=== PATIENT | male | born 1990 | race Caucasian/White ===

== ENCOUNTER 2018-10-12 13:56 | Emergency (ER) | payer MEDICAID ==
[2018-10-12 15:25] LABS: BASO % 0.5 % (0.0-2.0); EOS # 0.1 K/uL (0.0-0.7); EOS % 1.4 % (0.0-4.0); HEMOGLOBIN 12.7 g/dL (12.0-18.0); LYMPH # 1.5 K/uL (1.0-4.3); LYMPH % 18.1 % (20.0-40.0); MEAN CELL VOLUME 89.7 fL (80.0-94.0); MEAN CORPUSCULAR HEMOGLOBIN 29.8 pg (27.0-31.0); MEAN CORPUSCULAR HGB CONC 33.3 g/dL (33.0-37.0); MEAN PLATELET VOLUME 8.7 fL (7.2-11.7); MONO # 0.5 K/uL (0.0-0.8); MONO % 6.1 % (0.0-10.0); NEUT # 6.3 K/uL (1.8-7.0); NEUT % 73.9 % (50.0-75.0); RBC 4.27 Mil/uL (4.40-5.90); RED CELL DISTRIBUTION WIDTH 12.9 % (11.5-14.5); WHITE BLOOD COUNT 8.5 K/uL (4.8-10.8)
--- NOTE | 2018-10-12 15:26 | C.PDOC ---
History Of Present Illness 28 y/o male,w/PMhx of seizure disorder, presents to the ER complaining of episode of dizziness which occurred earlier today. 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 Patient reports he began to feel dizzy and nauseous. He felt clammy and he had some palpitations. He told his boss that he was concerned he may have seizure, however he did not have a seizure. He is currently on Keppra. However, his dosage is being currently decreased so he can switch to another medication. He has been experiencing brief seizure x 1 per day for the past 3 days. Denies having headache,visual disturbances, CP,and SOB. Time Seen by Provider: 10/12/18 15:01 Chief Complaint (Nursing): Seizure History Per: Patient History/Exam Limitations: no limitations Severity: Moderate Past Medical History Reviewed: Historical Data, Nursing Documentation, Vital Signs Vital Signs: Last Vital Signs Temp 97.5 F L 10/12/18 14:01 Pulse 64 10/12/18 14:01 Resp 20 10/12/18 14:01 BP 130/77 10/12/18 14:01 Pulse Ox 96 10/12/18 14:01 Primary Care Provider: Taurus Olivier - Medical History PMH: Seizures Surgical History: No Surg Hx Family History: States: No Known Family Hx - Social History Hx Alcohol Use: No Hx Substance Use: Yes - Immunization History Hx Tetanus Toxoid Vaccination: No Hx Influenza Vaccination: No Review Of Systems Constitutional: Negative for: Fever, Chills Eyes: Negative for: Vision Change Gastrointestinal: Positive for: Nausea. Negative for: Vomiting, Abdominal Pain Neurological: Positive for: Dizziness. Negative for: Headache Physical Exam - Physical Exam Appears: Non-toxic, No Acute Distress Skin: Normal Color, Warm, Dry Head: Atraumatic, Normacephalic Eye(s): bilateral: Normal Inspection, PERRL, EOMI Nose: Normal Oral Mucosa: Moist Neck: Supple Chest: Symmetrical Cardiovascular: Rhythm Regular Respiratory: Normal Breath Sounds, No Rales, No Rhonchi, No Wheezing Gastrointestinal/Abdominal: Normal Exam, Soft, No Tenderness, No Guarding, No Rebound Neurological/Psych: Oriented x3, Normal Speech ED Course And Treatment - Laboratory Results Result Diagrams: 10/12/18 15:19 05/01/19 15:19 Lab Interpretation: Normal O2 Sat by Pulse Oximetry: 96 (RA) Pulse Ox Interpretation: Normal Reevaluation Time: 15:59 Reassessment Condition: Improved (Patient feels well and back to normal.) Medical Decision Making Medical Decision Making: Plan: --Labs --UA --ECG --Glucose,POC Disposition Counseled Patient/Family Regarding: Studies Performed, Diagnosis, Need For Followup - Disposition Referrals: Josue Case MD [Staff Provider] - Disposition: HOME/ ROUTINE Disposition Time: 16:00 Condition: IMPROVED Instructions: Seizures Forms: Journal[employer] (Japanese) - Clinical Impression Clinical Impression: Seizure disorder - Scribe Statement The provider has reviewed the documentation as recorded by the Scribe cliff Pradhan Provider Attestation: All medical record entries made by the Scribe were at my direction and personally dictated by me. I have reviewed the chart and agree that the record accurately reflects my personal performance of the history, physical exam, medical decision making, and the department course for this patient. I have also personally directed, reviewed, and agree with the discharge instructions and disposition.
[2018-10-12 15:40] LABS: ALB/GLOB RATIO 1.8 (1.0-2.1); ALBUMIN 4.7 g/dL (3.5-5.0); ALT/SGPT 44 U/L (21-72); AST/SGOT 33 U/L (17-59); BLOOD UREA NITROGEN 25 mg/dL (9-20); CALCIUM 9.9 mg/dl (8.6-10.4); GFR NON-AFRICAN AMERICAN > 60
[2018-10-12 15:50] LABS: URINE BILIRUBIN NEGATIVE (NEGATIVE); URINE BLOOD NEGATIVE (NEGATIVE); URINE CLARITY Clear (Clear); URINE COLOR Yellow (YELLOW); URINE GLUCOSE (UA) NORMAL (Normal); URINE LEUKOCYTE ESTERASE NEG Leu/uL (Negative); URINE PROTEIN NEGATIVE (NEGATIVE); URINE UROBILINOGEN NORMAL mg/dL (0.2-1.0)
[2018-10-12 16:26] VITALS: BP 119/69; PULSE 55; RESP 18; TEMP 98.4; O2SAT 100
--- NOTE | 2018-10-13 11:12 | CARD ---
APPROVED REPORT Date of service: 10/12/2018 EKG Measurement Heart [id number] <Conclusion> Sinus bradycardia with 1st degree AV block Left ventricular hypertrophy with QRS widening Abnormal ECG
== END 2018-10-12 16:26 | disposition home or self-care (01) ==
LOC: C.ER 13:56
DX: G40.909 Epilepsy, unspecified, not intractable, without status epilepticus (principal)

== ENCOUNTER 2018-10-17 09:54 | Observation (INO) | payer OTHER, MEDICAID ==
[2018-10-17 10:00] VITALS: BMI 21.7
--- NOTE | 2018-10-17 10:56 | C.PDOC ---
History Of Present Illness 28 y/o male, with 2 year history of seizures and hole in heart, comes to ED s/p witnessed seizure at home prior to arrival. As per mother, seizure lasted about a minute. States that patient fell on to bed and bit his tongue. Patient is currently switching medications and has no complaints at this time. Notes he had several seizures last week, was seen in ED on 10/12/18 for pre-seizure but did not have one. Time Seen by Provider: 10/17/18 10:33 Chief Complaint (Nursing): Altered Mental Status History Per: Patient, Family (mother) History/Exam Limitations: None Onset/Duration Of Symptoms: Mins Past Medical History Reviewed: Historical Data, Nursing Documentation, Vital Signs Vital Signs: Last Vital Signs Temp 97.5 F L 10/17/18 10:02 Pulse 72 10/17/18 10:02 Resp 20 10/17/18 10:02 BP 125/74 10/17/18 10:02 Pulse Ox 99 10/17/18 10:02 Primary Care Provider: Taurus Olivier - Medical History PMH: Seizures Family History: States: No Known Family Hx - Social History Hx Alcohol Use: No Hx Substance Use: Yes - Immunization History Hx Tetanus Toxoid Vaccination: No Hx Influenza Vaccination: No Review Of Systems Constitutional: Negative for: Fever, Chills Cardiovascular: Negative for: Chest Pain, Palpitations Respiratory: Negative for: Cough, Shortness of Breath Gastrointestinal: Negative for: Nausea, Vomiting, Abdominal Pain Musculoskeletal: Negative for: Neck Pain Neurological: Positive for: Seizures. Negative for: Weakness, Numbness, Change in Speech, Dizziness Physical Exam - Physical Exam Appears: Non-toxic, No Acute Distress Skin: Warm, Dry Head: Normacephalic Eye(s): bilateral: PERRL, EOMI Oral Mucosa: Moist Tongue: Other (tiny abrasion on left lower edge of tongue) Neck: Supple Chest: No Tenderness Cardiovascular: Rhythm Regular, No Murmur Respiratory: No Rales, No Rhonchi, No Wheezing, Other (clear to auscultation bilaterally) Extremity: Bilateral: Atraumatic, Normal Color And Temperature Neurological/Psych: Oriented x3, Normal Speech, Normal Cognition ED Course And Treatment - Laboratory Results Result Diagrams: 10/17/18 11:13 10/17/18 11:13 O2 Sat by Pulse Oximetry: 99 (RA) Pulse Ox Interpretation: Normal - Other Rad CXR X-Ray: Read By Radiologist Interpretation: FINDINGS: LUNGS: No active pulmonary disease. PLEURA: No si gnificant pleural effusion identified, no pneumothorax apparent. CARDIOVASCULAR: No aortic atherosclerotic calcification present. . Sternotomy wires are present. Heart size upper limits of normal.. No pulmonary vascular congestion. OSSEOUS STRUCTURES: No significant abnormalities. VISUALIZED UPPER ABDOMEN: Normal. OTHER FINDINGS: None. IMPRESSION: No active disease. Medical Decision Making Medical Decision Making: Plan: --Labs --UA --EKG --Chest XR 11:40 Patient had a seizure while in the ED, right eye started twitching. Seizure lasted about a minute. Dr. Case, neuro community relations director, was notified and will come see patient in ED. 12:[address] Castellanos, will admit to her service for observation. pt was given dose of Aptiom in ED; Dr Case brought medicine to ED, not formulary. Disposition Discussed With Dr.: Matthew Castellanos Doctor Will See Patient In The: Hospital - Disposition Disposition: HOSPITALIZED Disposition Time: 12:56 Condition: GOOD - Clinical Impression Clinical Impression: Seizure disorder - PA / [employer] / Resident Statement MD/DO has reviewed & agrees with the documentation as recorded. - Scribe Statement The provider has reviewed the documentation as recorded by the Scribe All medical record entries made by the Scribe were at my direction and personally dictated by me. I have reviewed the chart and agree that the record accurately reflects my personal performance of the history, physical exam, medical decision making, and the department course for this patient. I have also personally directed, reviewed, and agree with the discharge instructions and disposition.
[2018-10-17 11:19] LABS: BASO % 0.5 % (0.0-2.0); EOS # 0.1 K/uL (0.0-0.7); EOS % 1.8 % (0.0-4.0); HEMOGLOBIN 12.7 g/dL (12.0-18.0); LYMPH % 14.8 % (20.0-40.0); MEAN CELL VOLUME 89.1 fL (80.0-94.0); MEAN CORPUSCULAR HEMOGLOBIN 29.7 pg (27.0-31.0); MEAN CORPUSCULAR HGB CONC 33.4 g/dL (33.0-37.0); MEAN PLATELET VOLUME 8.2 fL (7.2-11.7); MONO # 0.5 K/uL (0.0-0.8); MONO % 6.9 % (0.0-10.0); NEUT # 5.2 K/uL (1.8-7.0); NRBC % 0.1 % (0.0-2.0); RBC 4.26 Mil/uL (4.40-5.90); WHITE BLOOD COUNT 6.8 K/uL (4.8-10.8)
[2018-10-17] MEDS ORDERED: Sodium Chloride 0.9% 1,000 ML IV ONE (11:28)
[2018-10-17] MEDS ORDERED: Benzoin Compound Tincture (60 ml) ONE (11:36)
[2018-10-17 11:41] LABS: ALBUMIN 4.7 g/dL (3.5-5.0); ALT/SGPT 33 U/L (21-72); AST/SGOT 36 U/L (17-59); BLOOD UREA NITROGEN 15 mg/dL (9-20); CALCIUM 9.3 mg/dl (8.6-10.4); GFR NON-AFRICAN AMERICAN > 60
[2018-10-17 11:52] LABS: URINE BILIRUBIN NEGATIVE (NEGATIVE); URINE BLOOD NEGATIVE (NEGATIVE); URINE CLARITY Clear (Clear); URINE COLOR Yellow (YELLOW); URINE GLUCOSE (UA) NORMAL (Normal); URINE LEUKOCYTE ESTERASE NEG Leu/uL (Negative); URINE PROTEIN NEGATIVE (NEGATIVE); URINE UROBILINOGEN NORMAL mg/dL (0.2-1.0)
[2018-10-17 12:27] LABS: BARBITURATES, UR NEGATIVE (NEGATIVE); BENZODIAZEPINES, UR NEGATIVE (NEGATIVE); OPIATES, UR NEGATIVE (NEGATIVE); PHENCYCLIDINE, UR NEGATIVE (NEGATIVE)
--- NOTE | 2018-10-17 12:47 | RAD ---
Date of service: 10/17/2018 HISTORY: Eating then had seizure COMPARISON: No prior study available comparison TECHNIQUE: 1 view obtained. FINDINGS: LUNGS: No active pulmonary disease. PLEURA: No significant pleural effusion identified, no pneumothorax apparent. CARDIOVASCULAR: No aortic atherosclerotic calcification present. . Sternotomy wires are present. Heart size upper limits of normal.. No pulmonary vascular congestion. OSSEOUS STRUCTURES: No significant abnormalities. VISUALIZED UPPER ABDOMEN: Normal. OTHER FINDINGS: None. IMPRESSION: No active disease.
[2018-10-17 14:52] VITALS: RESP 20
[2018-10-17] MEDS ORDERED: Magnesium Sulfate 1 gm in D5W 1 GM/100 ML BAG IVPB ONE (15:38)
--- NOTE | 2018-10-17 16:14 | CP.PCM.HP ---
History of Present Illness - History of Present Illness History of Present Illness: PGY-1 History and Physical for Dr. Dumont Patient is a 28 year old male with PMHx congenintal septal defect (atrial septal defect?) and epilepsy presents following a witnessed seizure episode. Patient has a history of seizures in the past and sees Dr. Case outpatient. Patient presents with mother at bedside who did witness the seizure- she states patient had whole-body shaking. She states patient was sleeping prior to seizure ac tivity. Patient remembers feeling prodrome of finger tingling/numbness and "not feeling like myself". Pt does not remember seizing, but he was seen in bed by his mother shaking- patient did not fall and hit his head. Patient denies any focal weakness or residual neuro symptoms other and whole body fatigue and weakness. Denies loss of bowel or bladder. Patient's mother states he has also been feeling increasingly anxious lately which may be correlated with medication change (Pt currently in process weaning off Keppra, previously on Carbamazepine). Patient has been in the process of weaning off of Keppra pper Dr. Case due to negative side effects, and consequently was taking a lower dose than previously prescribed (currently at 1500mg/day dose). Note patient also does have history of congenital septal defect status post open sternotomy repair in 2007. Patient denies vision loss, palpitations, focal weakness, blurred vision, facial droop. Medcal hx: As stated Medications (Keppra - stopping med), starting Aption 1600 mg PO once daily, Coumadin 4mg PO daily (unclear if this due to valve replacement or the reason for coumadin therapy Surgical: Open sternotomy repair in 2007 with repair of congenital septal defect Allergies: NKA Family hx: Family hx epilepsy - brother and niece. Father age 40 from cardiac issues (unsure what) Social: Denies alcohol, tobacco, drugs. Works maintenance. Parents and father age 40. PMD: Dr. Olivier Neurology: Dr. Case Cardio: Dr. Mora Present on Admission - Present on Admission Any Indicators Present on Admission: No Review of Systems - Constitutional Constitutional: absent: Chills, Fever - EENT Eyes: absent: Blurred Vision, Diplopia Nose/Mouth/Throat: absent: Epistaxis, Nasal Discharge - Cardiovascular Cardiovascular: absent: Chest Pain, Lightheadedness, Palpitations, Pedal Edema - Respiratory Respiratory: absent: Cough, Dyspnea - Gastrointestinal Gastrointestinal: absent: Abdominal Pain, Constipation, Nausea, Vomiting - Genitourinary Genitourinary: absent: Flank Pain, Hematuria - Neurological Neurological: Convulsions (Resolved), Paresthesias (Tingling in fingers prior to seizure), Tingling (Tingling in fingers prior to seizure), Weakness (post- ictal). absent: Confusion, Dizziness, Numbness, Focal Weakness, Headaches, Sensory Deficit, Tremor - Psychiatric Psychiatric: absent: Anxiety, Depression - Hematologic/Lymphatic Hematologic: absent: Easy Bleeding, Easy Bruising Past Patient History - Past Social History Smoking Status: Never Smoked - CARDIAC Other/Comment: heart surgery - NEUROLOGICAL Hx Seizures: Yes - PSYCHIATRIC Hx Substance Use: Yes - SURGICAL HISTORY Hx Coronary Artery Bypass Graft: Yes - ANESTHESIA Hx Anesthesia: No Hx Anesthesia Reactions: No Meds Allergies/Adverse Reactions: Allergies Allergy/AdvReac Type Severity Reaction Status Date / Time No Known Allergies Allergy Unverified 10/12/18 14:05 Physical Exam - Constitutional Appears: Non-toxic, No Acute Distress - Head Exam Head Exam: ATRAUMATIC, NORMOCEPHALIC - Eye Exam Eye Exam: EOMI, Normal appearance - ENT Exam ENT Exam: Mucous Membranes Moist Additional comments: Bite rubio on tongue bilaterally - Respiratory Exam Respiratory Exam: Clear to Auscultation Bilateral. absent: Wheezes, Stridor - Cardiovascular Exam Cardiovascular Exam: REGULAR RHYTHM, +S1, +S2 - GI/Abdominal Exam GI & Abdominal Exam: Normal Bowel Sounds, Soft. absent: Tenderness - Extremities Exam Extremities exam: Positive for: pedal pulses present. Negative for: pedal edema, tenderness - Neurological Exam Neurological exam: Alert, CN II-XII Intact, Oriented x3 Additional comments: post-ictal, somnolent but arousable. clinical neuropsychologist II - XII intact. Sensory and motor fully intact throughout. Normal Babinsky. - Psychiatric Exam Psychiatric exam: Normal Affect, Normal Mood - Skin Skin Exam: Dry, Intact Results - Vital Signs Recent Vital Signs: Last Vital Signs Temp 98.1 F 10/17/18 15:16 Pulse 62 10/17/18 15:16 Resp 20 10/17/18 15:16 BP 111/65 10/17/18 15:16 Pulse Ox 97 10/17/18 15:16 - Labs Result Diagrams: 10/17/18 11:13 10/17/18 11:13 Labs: Laboratory Results - last 24 hr 10/17/18 10/17/18 10/17/18 11:13 11:13 11:38 WBC 6.8 RBC 4.26 L Hgb 12.7 Hct 38.0 MCV 89.1 MCH 29.7 MCHC 33.4 RDW 13.0 Plt Count 166 MPV 8.2 Neut % (Auto) 76.0 H Lymph % (Auto) 14.8 L Maury % (Auto) 6.9 Eos % (Auto) 1.8 Baso % (Auto) 0.5 Neut # (Auto) 5.2 Lymph # (Auto) 1.0 Maury # (Auto) 0.5 Eos # (Auto) 0.1 Baso # (Auto) 0.0 Sodium 138 Potassium 4.4 Chloride 98 Carbon Dioxide 31 H Anion Gap 14 BUN 15 Creatinine 0.9 Est GFR ( Amer) > 60 Est GFR (Non-Af Amer) > 60 Random Glucose 89 Calcium 9.3 Magnesium 1.6 Total Bilirubin 0.4 AST 36 ALT 33 Alkaline Phosphatase 70 Total Protein 7.1 Albumin 4.7 Globulin 2.4 Albumin/Globulin Ratio 2.0 Urine Color Yellow Urine Clarity Clear Urine pH 6.0 Ur Specific [place] 1.020 Urine Protein Negative Urine Glucose (UA) Normal Urine Ketones Negative Urine Blood Negative Urine Nitrate Negative Urine Bilirubin Negative Urine Urobilinogen Normal Ur Leukocyte Esterase Neg Urine WBC (Auto) 1 Urine RBC (Auto) < 1 Urine Opiates Screen Urine Methadone Screen Ur Barbiturates Screen Ur Phencyclidine Scrn Ur Amphetamines Screen U Benzodiazepines Scrn U Oth Cocaine Metabols U Cannabinoids Screen 10/17/18 11:38 WBC RBC Hgb Hct MCV MCH MCHC RDW Plt Count MPV Neut % (Auto) Lymph % (Auto) Maury % (Auto) Eos % (Auto) Baso % (Auto) Neut # (Auto) Lymph # (Auto) Maury # (Auto) Eos # (Auto) Baso # (Auto) Sodium Potassium Chloride Carbon Dioxide Anion Gap BUN Creatinine Est GFR ( Amer) Est GFR (Non-Af Amer) Random Glucose Calcium Magnesium Total Bilirubin AST ALT Alkaline Phosphatase Total Protein Albumin Globulin Albumin/Globulin Ratio Urine Color Urine Clarity Urine pH Ur Specific [place] Urine Protein Urine Glucose (UA) Urine Ketones Urine Blood Urine Nitrate Urine Bilirubin Urine Urobilinogen Ur Leukocyte Esterase Urine WBC (Auto) Urine RBC (Auto) Urine Opiates Screen Negative Urine Methadone Screen Negative Ur Barbiturates Screen Negative Ur Phencyclidine Scrn Negative Ur Amphetamines Screen Negative U Benzodiazepines Scrn Negative U Oth Cocaine Metabols Negative U Cannabinoids Screen Positive H Assessment & Plan - Assessment and Plan (Free Text) Assessment: 28 year old male hx congenital septal defect and epilepsy, currently weaning from Keppra to Aption for seizure, presents following witnessed seizure. Plan Epilepsy, witnessed seizure -Neurology, Dr. Case --Patient with home meds (samples) at bedside of Aption - to take 1600 mg Aption daily --Keppra d/c'd --Tele --CT head 10/17: No acute intracranial hemorrhage --Mag repleted Meds -Aption 1600 mg PO daily -f/u further recs per Dr. Case Congenital Septal Defect, RBBB on EKG -No prior EKG on file for comparison -Patient's own electronic news gathering camera person consulted, Dr. Mora -Tele -f/u recs PPx -seizure precautions, aspiration precautions -DVT: Heparin 5000 U SC daily (CT head neg for ICH) Assessment and plan d/w Dr. Julia Irving, PGY-1
--- NOTE | 2018-10-17 16:27 | CT ---
Date of service: 10/17/2018 PROCEDURE: CT HEAD WITHOUT CONTRAST. HISTORY: Seizure COMPARISON: None available. TECHNIQUE: Axial computed tomography images were obtained through the head/brain without intravenous contrast. Radiation dose: Total exam DLP = 1185.5 mGy-cm. This CT exam was performed using one or more of the following dose reduction techniques: Automated exposure control, adjustment of the mA and/or kV according to patient size, and/or use of iterative reconstruction technique. FINDINGS: HEMORRHAGE: No intracranial hemorrhage. BRAIN: No mass effect or edema. No atrophy or chronic microvascular ischemic changes. VENTRICLES: Unremarkable. No hydrocephalus. CALVARIUM: Unremarkable. PARANASAL SINUSES: Left frontal sinuses are underpneumatized. Minimal mucosal thickening seen within left aspect of the sphenoid sinus.. MASTOID AIR CELLS: Unremarkable as visualized. No inflammatory changes. OTHER FINDINGS: None. IMPRESSION: No acute intracranial hemorrhage.
--- NOTE | 2018-10-17 21:45 | CP.PCM.CON ---
History of Present Illness - History of Present Illness History of Present Illness: 28 yr old male who is my patient from clinic with a history of epilepsy since 10 years. Moris started having seizures as a young child, with no aura and secondarily generalized seizures. He was on dilantin, and it made him quite sle epy, then tegretol, which did not work well, and then was started on Keppra that made him very irritable. I tapered the keppra and started him on Aptiom, and he is now on a dose of 1000 mg daily, having tapered off Keppra. IT is not clear if he has primary generalized epilepsy or frontal lobe epilepsy. IT would be advisable on this admission to obtain video EEG to clarify. HE had a generalized seizure last night, and another one in the ER today and was given 2mg IV of ativan. HE was quite sedated when I spoke to him and was not able to give me a review of systems. PMH/PSH: Epilepsy FH/SH: Lives with mom, works. No tobacco, no etoh. All: nkda ON exam: Normal neurological exam. AAOx3 Cn 2-12 normal. EOMI. Speech fluent. MMS: 30/30 Motor: 5/5 ul and ll bl. Sensory: normal. Gait normal. Past Patient History - Past Social History Smoking Status: Never Smoked - CARDIAC Other/Comment: heart surgery - NEUROLOGICAL Hx Seizures: Yes - PSYCHIATRIC Hx Substance Use: Yes - SURGICAL HISTORY Hx Coronary Artery Bypass Graft: Yes - ANESTHESIA Hx Anesthesia: No Hx Anesthesia Reactions: No Meds Allergies/Adverse Reactions: Allergies Allergy/AdvReac Type Severity Reaction Status Date / Time No Known Allergies Allergy Unverified 10/12/18 14:05 - Medications Medications: Current Medications Heparin Sodium (Porcine) (Heparin) 5,000 units SC Q12 RACHID Home Med (Patient's Own Medication) 2 tab PO HS RACHID Stop: 10/18/18 22:01 Results - Vital Signs Recent Vital Signs: Last Vital Signs Temp 98.1 F 10/17/18 15:16 Pulse 62 10/17/18 15:16 Resp 20 10/17/18 15:16 BP 111/65 10/17/18 15:16 Pulse Ox 97 10/17/18 15:16 - Labs Result Diagrams: 10/17/18 11:13 10/17/18 11:13 Labs: Laboratory Results - last 24 hr 10/17/18 10/17/18 10/17/18 11:13 11:13 11:13 WBC 6.8 RBC 4.26 L Hgb 12.7 Hct 38.0 MCV 89.1 MCH 29.7 MCHC 33.4 RDW 13.0 Plt Count 166 MPV 8.2 Neut % (Auto) 76.0 H Lymph % (Auto) 14.8 L [place] % (Auto) 6.9 Eos % (Auto) 1.8 Baso % (Auto) 0.5 Neut # (Auto) 5.2 Lymph # (Auto) 1.0 [place] # (Auto) 0.5 Eos # (Auto) 0.1 Baso # (Auto) 0.0 Sodium 138 Potassium 4.4 Chloride 98 Carbon Dioxide 31 H Anion Gap 14 BUN 15 Creatinine 0.9 Est GFR ( Amer) > 60 Est GFR (Non-Af Amer) > 60 Random Glucose 89 Calcium 9.3 Magnesium 1.6 Total Bilirubin 0.4 AST 36 ALT 33 Alkaline Phosphatase 70 Total Protein 7.1 Albumin 4.7 Globulin 2.4 Albumin/Globulin Ratio 2.0 Lipase 57 Urine Color Urine Clarity Urine pH Ur Specific [place] Urine Protein Urine Glucose (UA) Urine Ketones Urine Blood Urine Nitrate Urine Bilirubin Urine Urobilinogen Ur Leukocyte Esterase Urine WBC (Auto) Urine RBC (Auto) Urine Opiates Screen Urine Methadone Screen Ur Barbiturates Screen Ur Phencyclidine Scrn Ur Amphetamines Screen U Benzodiazepines Scrn U Oth Cocaine Metabols U Cannabinoids Screen 10/17/18 10/17/18 11:38 11:38 WBC RBC Hgb Hct MCV MCH MCHC RDW Plt Count MPV Neut % (Auto) Lymph % (Auto) [place] % (Auto) Eos % (Auto) Baso % (Auto) Neut # (Auto) Lymph # (Auto) [place] # (Auto) Eos # (Auto) Baso # (Auto) Sodium Potassium Chloride Carbon Dioxide Anion Gap BUN Creatinine Est GFR ( Amer) Est GFR (Non-Af Amer) Random Glucose Calcium Magnesium Total Bilirubin AST ALT Alkaline Phosphatase Total Protein Albumin Globulin Albumin/Globulin Ratio Lipase Urine Color Yellow Urine Clarity Clear Urine pH 6.0 Ur Specific [place] 1.020 Urine Protein Negative Urine Glucose (UA) Normal Urine Ketones Negative Urine Blood Negative Urine Nitrate Negative Urine Bilirubin Negative Urine Urobilinogen Normal Ur Leukocyte Esterase Neg Urine WBC (Auto) 1 Urine RBC (Auto) < 1 Urine Opiates Screen Negative Urine Methadone Screen Negative Ur Barbiturates Screen Negative Ur Phencyclidine Scrn Negative Ur Amphetamines Screen Negative U Benzodiazepines Scrn Negative U Oth Cocaine Metabols Negative U Cannabinoids Screen Positive H Assessment & Plan - Assessment and Plan (Free Text) Assessment: 28 yr old male with epilepsy, syndrome as of yet undefined. We will obtain video EEG tomorrow for 24 hours on aptiom 1600 mg po daily. THis is the max dose for monotherapy. We will assess his syndrome, and discharge when he is stable. THank you Dr. Case Neurology
[2018-10-17] MEDS ORDERED: APTIOM 800 MG PO SCH (22:00)
[2018-10-18 06:49] LABS: BASO % 0.3 % (0.0-2.0); EOS # 0.1 K/uL (0.0-0.7); EOS % 1.4 % (0.0-4.0); HEMOGLOBIN 12.6 g/dL (12.0-18.0); LYMPH # 1.6 K/uL (1.0-4.3); LYMPH % 18.1 % (20.0-40.0); MEAN CELL VOLUME 88.8 fL (80.0-94.0); MEAN CORPUSCULAR HEMOGLOBIN 29.3 pg (27.0-31.0); MEAN PLATELET VOLUME 8.3 fL (7.2-11.7); MONO # 0.6 K/uL (0.0-0.8); MONO % 7.1 % (0.0-10.0); NEUT # 6.5 K/uL (1.8-7.0); NEUT % 73.1 % (50.0-75.0); NRBC % 0.1 % (0.0-2.0); RBC 4.3 Mil/uL (4.40-5.90); WHITE BLOOD COUNT 8.8 K/uL (4.8-10.8)
[2018-10-18 07:04] LABS: ALB/GLOB RATIO 1.9 (1.0-2.1); ALBUMIN 4.5 g/dL (3.5-5.0); ALT/SGPT 32 U/L (21-72); AST/SGOT 25 U/L (17-59); BLOOD UREA NITROGEN 15 mg/dL (9-20); CALCIUM 9.4 mg/dl (8.6-10.4); GFR NON-AFRICAN AMERICAN > 60
--- NOTE | 2018-10-18 07:25 | CP.PCM.PN ---
<Tyrel Rodriges - Last Filed: 10/18/18 14:28> Subjective - Date & Time of Evaluation Date of Evaluation: 10/18/18 Time of Evaluation: 07:25 - Subjective Subjective: PGY-1 Medicine progress note for Dr. Dumont Patient seen and examined at bedside. No acute events overnight. Patient states that he has not had any new seizures. He denies headaches, fevers, chills, shortness of breath, chest pain, abdominal pain, or any other complaints. Objective - Vital Signs/Intake and Output Vital Signs (last 24 hours): Temp Pulse Resp BP Pulse Ox 98.7 F 56 L 20 112/65 100 10/17/18 23:30 10/17/18 23:30 10/17/18 23:30 10/17/18 23:30 10/17/18 23:30 - Medications Medications: Current Medications Home Med (Patient's Own Medication) 2 tab PO HS RACHID Stop: 10/18/18 22:01 Last Admin: 10/17/18 21:36 Dose: 2 tab - Labs Labs: 10/18/18 06:36 10/18/18 06:36 - Constitutional Appears: Well, Non-toxic, No Acute Distress - Head Exam Head Exam: ATRAUMATIC, NORMAL INSPECTION - Eye Exam Eye Exam: EOMI, Normal appearance Pupil Exam: NORMAL ACCOMODATION - ENT Exam ENT Exam: Mucous Membranes Moist - Neck Exam Neck Exam: Normal Inspection - Respiratory Exam Respiratory Exam: Clear to Ausculation Bilateral, NORMAL BREATHING PATTERN. absent: Rales, Rhonchi, Wheezes, Respiratory Distress - Cardiovascular Exam Cardiovascular Exam: REGULAR RHYTHM, +S1, +S2. absent: Bradycardia, Tachycardia, Gallop, Rubs, Murmur - GI/Abdominal Exam GI & Abdominal Exam: Soft, Normal Bowel Sounds. absent: Distended, Firm, Guarding, Tenderness - Extremities Exam Extremities Exam: Normal Inspection. absent: Calf Tenderness, Pedal Edema - Back Exam Back Exam: NORMAL INSPECTION - Neurological Exam Neurological Exam: Alert, Awake, CN II-XII Intact, Oriented x3 Additional comments: Muscle strength 5/5 and sensations intact in all extremities - Psychiatric Exam Psychiatric exam: Normal Affect, Normal Mood - Skin Skin Exam: Dry, Intact, Normal Color, Warm Assessment and Plan - Assessment and Plan (Free Text) Assessment: Patient is a 28 year old male with a history of congenital septal defect and epilepsy, admitted for seizure episodes. Plan: Epilepsy - CT head 10/17: No acute intracranial hemorrhage - Neurology consulted, Dr. Case - Continue Aptiom 1,600 mg PO QD - Ativan 1mg IV PRN - Continuos Video EEG today - Neurochecks Q4H - Seizure and aspiration precautions in place - UDS: positive for marijuana Hx of Congenital Septal Defect - Patient had a right ventricle septal repair in 2007 - Patient's own electric locomotive firer/fireman consulted, Dr. Mora - Monitor on telemetry Prophylaxis: - DVT: SCD's - GI: Not indicated Patient seen and case discussed with attending, Dr. Dumont. Tyrel Rodriges, PGY-1 <Kaur Dumont V - Last Filed: 10/19/18 07:54> Objective - Vital Signs/Intake and Output Vital Signs (last 24 hours): Temp Pulse Resp BP Pulse Ox 97.6 F 55 L 20 127/67 97 10/18/18 23:25 10/18/18 23:25 10/18/18 23:25 10/18/18 23:25 10/19/18 04:00 - Medications Medications: Current Medications Acetaminophen (Tylenol 325mg Tab) 650 mg PO Q6 PRN PRN Reason: Headache Home Med (Patient's Own Medication) 2 tab PO DAILY RACHID Stop: 10/19/18 10:01 Lorazepam (Ativan) 1 mg IVP Q4H PRN PRN Reason: Seizure activity - Labs Labs: 10/18/18 06:36 10/18/18 06:36 Attending/Attestation - Attestation I have personally seen and examined this patient.: Yes I have fully participated in the care of the patient.: Yes I have reviewed all pertinent clinical information, including history, physical exam and plan: Yes Notes (Text): This is late computer entry for 10/18/18. Patient seen, examined and case discussed with medical director of hospice. Patient seen this morning he felt flushed but has not had any reported seizure overnight per nursing staff. Patient to have video eeg today and continue his home medication which is his new seizure medication prescribed by the neurologist. Patient reports he has not seen his electric locomotive firer/fireman in 6 months; he has noted congential heart defect that was fixed with abnormal EKG (RBBB?) however unclear if consistent with his prior or not.
[2018-10-18] MEDS ORDERED: Home Med 1 UNIT PO SCH (10:00)
[2018-10-18] MEDS ORDERED: ESLICARBAZEPINE PO SCH (10:10)
--- NOTE | 2018-10-18 11:54 | CP.PCM.PN ---
<Austen Velasquez - Last Filed: 10/18/18 13:35> Subjective - Date & Time of Evaluation Date of Evaluation: 10/18/18 Time of Evaluation: 10:00 - Subjective Subjective: PGY-1 neurology progress note for Dr Cruz Patient is seen and examined at bedside. No acute events overnight. No reported new seizure activity. Patient is currently on Aption 1600mg once a day, pending 24 hour video EEG. Mentions to feeling throbbing pain on right side of head before going to sleep, but has not felt like that since admission. Denies fever, chills, chest pain, sob, n/v/d/c, denies weakness, dizziness, headaches, vision changes, tremors. Patient is ambulating and tolerating diet. Objective - Vital Signs/Intake and Output Vital Signs (last 24 hours): Temp Pulse Resp BP Pulse Ox 98.3 F 57 L 20 121/69 96 10/18/18 08:21 10/18/18 08:21 10/18/18 08:21 10/18/18 08:21 10/18/18 11:47 - Labs Labs: 10/18/18 06:36 10/18/18 06:36 - Constitutional Appears: Non-toxic, No Acute Distress - Head Exam Head Exam: ATRAUMATIC, NORMAL INSPECTION, NORMOCEPHALIC - Eye Exam Eye Exam: EOMI, Normal appearance, PERRL Pupil Exam: NORMAL ACCOMODATION - ENT Exam ENT Exam: Mucous Membranes Moist, Normal Exam - Respiratory Exam Respiratory Exam: Clear to Ausculation Bilateral, NORMAL BREATHING PATTERN - Cardiovascular Exam Cardiovascular Exam: REGULAR RHYTHM, +S1, +S2 - Extremities Exam Extremities Exam: Full ROM - Neurological Exam Neurological Exam: Alert, Awake, CN II-XII Intact, Oriented x3 Neuro motor strength exam: Left Upper Extremity: 5, Right Upper Extremity: 5, Left Lower Extremity: 5, Right Lower Extremity: 5 - Psychiatric Exam Psychiatric exam: Normal Affect, Normal Mood - Skin Skin Exam: Normal Color, Warm Assessment and Plan - Assessment and Plan (Free Text) Plan: 28 year old male admitted for evaluation of epilepsy, On Aptiom, previously tapered off Keppra. 1. Patient to obtain 24 hour video EEG today, will follow up results 2. Continue Aptiom 1600 mg PO daily 3. Ativan PRN 4. Seizure and aspiration precautions 4. Continue medical management as per primary Plan d/w Dr Manpreet Velasquez, PGY-1 <Josue Cruz - Last Filed: 10/19/18 10:41> Objective - Vital Signs/Intake and Output Vital Signs (last 24 hours): Temp Pulse Resp BP Pulse Ox 97.8 F 52 L 20 123/69 100 10/19/18 07:00 10/19/18 07:00 10/19/18 07:00 10/19/18 07:00 10/19/18 07:00 - Medications Medications: Current Medications Acetaminophen (Tylenol 325mg Tab) 650 mg PO Q6 PRN PRN Reason: Headache Lorazepam (Ativan) 1 mg IVP Q4H PRN PRN Reason: Seizure activity - Labs Labs: 10/19/18 08:26 10/19/18 08:26 Assessment and Plan - Assessment and Plan (Free Text) Plan: All medical record entries made by the Resident were at my direction and personally dictated by me. I have reviewed the chart and agree that the record accurately reflects my personal performance of the history, physical exam, medical decision making, and the department course for this patient. I have also personally directed, reviewed, and agree with the discharge instructions and disposition. Mr. Lopez is my patient with complex partial seizures, who is now being monitored for interictal discharges. Continue aptiom at [address] cruz Neurology
[2018-10-18] MEDS ORDERED: ESLICARBAZEPINE ACETATE PO SCH (13:30)
--- NOTE | 2018-10-19 07:06 | CP.PCM.PN ---
Subjective - Date & Time of Evaluation Date of Evaluation: 10/19/18 Time of Evaluation: 07:06 - Subjective Subjective: Progress Note for Dr. Dumont Patient seen and examined at bedside. He states that he has not had any seizures overnight. He states that he had an intermittent episodes of throbbing on right side of his head, he denies losing consciousness, waking up confused, denies any new injuries. He denies fevers, chills, lightheadedness, dizziness, chest pain, shortness of breath, palpitations, abdominal pain, nausea, vomiting, diarrhea, constipation, dysuria, leg pain. Objective - Vital Signs/Intake and Output Vital Signs (last 24 hours): Temp Pulse Resp BP Pulse Ox 97.6 F 55 L 20 127/67 97 10/18/18 23:25 10/18/18 23:25 10/18/18 23:25 10/18/18 23:25 10/19/18 04:00 - Medications Medications: Current Medications Acetaminophen (Tylenol 325mg Tab) 650 mg PO Q6 PRN PRN Reason: Headache Home Med (Patient's Own Medication) 2 tab PO DAILY RACHID Stop: 10/19/18 10:01 Lorazepam (Ativan) 1 mg IVP Q4H PRN PRN Reason: Seizure activity - Labs Labs: 10/18/18 06:36 10/18/18 06:36 - Constitutional Appears: Well, Non-toxic, No Acute Distress - Head Exam Head Exam: ATRAUMATIC, NORMOCEPHALIC - Eye Exam Eye Exam: EOMI, PERRL Additional comments: Scar on left eyebrow - ENT Exam ENT Exam: Mucous Membranes Dry Additional comments: Old bruise on left tongue - Neck Exam Neck Exam: Full ROM. absent: Tenderness - Respiratory Exam Respiratory Exam: Clear to Ausculation Bilateral, NORMAL BREATHING PATTERN. absent: Rhonchi, Wheezes, Respiratory Distress, Stridor - Cardiovascular Exam Cardiovascular Exam: REGULAR RHYTHM, +S1, +S2. absent: Gallop, Rubs, Murmur Additional comments: Sternotomy scar from congenital heart repair earlier - GI/Abdominal Exam GI & Abdominal Exam: Soft, Normal Bowel Sounds. absent: Firm, Guarding, Rigid, Tenderness, Organomegaly - Extremities Exam Extremities Exam: absent: Calf Tenderness, Pedal Edema - Back Exam Back Exam: absent: CVA tenderness (L), CVA tenderness (R) Additional comments: Birthmark present on left upper back, not ecchymosis - Neurological Exam Neurological Exam: Alert, Awake, CN II-XII Intact, Oriented x3, Reflexes Normal Neuro motor strength exam: Left Upper Extremity: 5, Right Upper Extremity: 5, Left Lower Extremity: 5, Right Lower Extremity: 5 - Psychiatric Exam Psychiatric exam: Normal Affect, Normal Mood - Skin Skin Exam: Dry, Intact, Warm Assessment and Plan - Assessment and Plan (Free Text) Assessment: Patient is a 28 year old male with a history of congenital septal defect and epilepsy, admitted for seizure episodes. Plan: Epilepsy CT head: no acute intracranial hemorrhage Neurology Dr. Case on board, help appreciated Continue Aptiom 1600mg PO daily Ativan 1mg IV PRN Plan for 24 hour video EEG today, starting at 12:30pm today. Neurochecks Aspiration and seizure precautions Urine drug screen: positive for cannabinoids Patient admits he has been smoking blunts more frequently, educated about the risks of persistent and advised against continued cannibinoid use History of Congenital Septal Defect Dr. Mora consulted, since he has not followed up with him as outpatient EKG SR 65 RBBB Prophylaxis DVT SCDs GI not indicated Case discussed with Dr. Julia Ku, PGY1
[2018-10-19 08:37] LABS: BASO % 0.4 % (0.0-2.0); EOS # 0.1 K/uL (0.0-0.7); EOS % 1.6 % (0.0-4.0); LYMPH # 1.9 K/uL (1.0-4.3); LYMPH % 28.7 % (20.0-40.0); MEAN CELL VOLUME 89.2 fL (80.0-94.0); MEAN CORPUSCULAR HEMOGLOBIN 29.6 pg (27.0-31.0); MEAN CORPUSCULAR HGB CONC 33.2 g/dL (33.0-37.0); MEAN PLATELET VOLUME 8.7 fL (7.2-11.7); MONO # 0.5 K/uL (0.0-0.8); MONO % 7.6 % (0.0-10.0); NEUT % 61.7 % (50.0-75.0); RBC 4.38 Mil/uL (4.40-5.90); RED CELL DISTRIBUTION WIDTH 12.9 % (11.5-14.5); WHITE BLOOD COUNT 6.4 K/uL (4.8-10.8)
[2018-10-19 08:55] LABS: ALB/GLOB RATIO 1.8 (1.0-2.1); ALBUMIN 4.5 g/dL (3.5-5.0); ALT/SGPT 40 U/L (21-72); AST/SGOT 31 U/L (17-59); BLOOD UREA NITROGEN 17 mg/dL (9-20); GFR NON-AFRICAN AMERICAN > 60
[2018-10-19] MEDS ORDERED: APTIOM 800MG TAB PO SCH (10:00)
--- NOTE | 2018-10-19 11:31 | CP.PCM.PN ---
Subjective - Date & Time of Evaluation Date of Evaluation: 10/19/18 Time of Evaluation: 10:30 - Subjective Subjective: PGY-1 Neurology progress note for Dr Case Patient is seen and examined at bedside. As per patient, no acute changes overnight. As per nurse, no reported new seizure activity. Mother at bedside, patient is ambulating and tolerating diet. Admits to mild throbbing/shaking sensation on left side of latter-day area last night that goes away on its own. Video EEG not done as of this morning due to [facility]'s availability, nurse and Dr Case spoke with [facility] and will plan to start 24 hour VEEG today. Patient continues taking Aptiom 1600mg once a day. Denies weakness, headaches, aura, nausea, vomiting, vision or hearing changes. Objective - Vital Signs/Intake and Output Vital Signs (last 24 hours): Temp Pulse Resp BP Pulse Ox 97.8 F 52 L 20 123/69 100 10/19/18 07:00 10/19/18 07:00 10/19/18 07:00 10/19/18 07:00 10/19/18 07:00 - Medications Medications: Current Medications Acetaminophen (Tylenol 325mg Tab) 650 mg PO Q6 PRN PRN Reason: Headache Lorazepam (Ativan) 1 mg IVP Q4H PRN PRN Reason: Seizure activity - Labs Labs: 10/19/18 08:26 10/19/18 08:26 - Constitutional Appears: Non-toxic, No Acute Distress - Head Exam Head Exam: ATRAUMATIC, NORMAL INSPECTION, NORMOCEPHALIC - Eye Exam Eye Exam: EOMI, Normal appearance, PERRL Pupil Exam: NORMAL ACCOMODATION - Respiratory Exam Respiratory Exam: Clear to Ausculation Bilateral, NORMAL BREATHING PATTERN - Cardiovascular Exam Cardiovascular Exam: REGULAR RHYTHM, +S1, +S2 - Neurological Exam Neurological Exam: Alert, Awake, CN II-XII Intact, Normal Gait, Oriented x3 Neuro motor strength exam: Left Upper Extremity: 5, Right Upper Extremity: 5, Left Lower Extremity: 5, Right Lower Extremity: 5 - Psychiatric Exam Psychiatric exam: Normal Affect, Normal Mood - Skin Skin Exam: Normal Color, Warm Assessment and Plan - Assessment and Plan (Free Text) Plan: 28 year old male admitted for evaluation of complex partial seizure, On Aptiom, previously tapered off Keppra. 1. vEEG not done yesterday, 24 hour video EEG today, will follow up results 2. Continue Aptiom 1600 mg PO daily 3. Ativan PRN 4. Seizure and aspiration precautions 4. Cont medical management as per primary team Plan d/w Dr Manpreet Velasquez, PGY-1
[2018-10-19 23:44] VITALS: PULSE 59
--- NOTE | 2018-10-20 03:36 | CARD ---
APPROVED REPORT Date of service: 10/17/2018 EKG Measurement Heart [id number] <Conclusion> Normal sinus rhythm Right bundle branch block Voltage criteria for left ventricular hypertrophy Abnormal ECG
--- NOTE | 2018-10-20 06:59 | CP.PCM.PN ---
Subjective - Date & Time of Evaluation Date of Evaluation: 10/20/18 Time of Evaluation: 06:59 - Subjective Subjective: Progress Note for Hospitalist service Patient seen and examined at bedside. Objective - Vital Signs/Intake and Output Vital Signs (last 24 hours): Temp Pulse Resp BP Pulse Ox 97.7 F 59 L 20 120/74 98 10/19/18 23:12 10/19/18 23:43 10/19/18 23:12 10/19/18 23:12 10/19/18 23:12 - Medications Medications: Current Medications Acetaminophen (Tylenol 325mg Tab) 650 mg PO Q6 PRN PRN Reason: Headache Home Med (Patient's Own Medication) 0 tab PO DAILY RACHID Lorazepam (Ativan) 1 mg IVP Q4H PRN PRN Reason: Seizure activity - Labs Labs: 10/19/18 08:26 10/19/18 08:26
[2018-10-20 07:53] VITALS: BP 125/78; TEMP 97.5; O2SAT 97
[2018-10-20 08:36] LABS: BASO % 0.7 % (0.0-2.0); EOS # 0.2 K/uL (0.0-0.7); EOS % 2.4 % (0.0-4.0); HEMOGLOBIN 13.6 g/dL (12.0-18.0); LYMPH # 1.6 K/uL (1.0-4.3); LYMPH % 24.7 % (20.0-40.0); MEAN CELL VOLUME 89.4 fL (80.0-94.0); MEAN CORPUSCULAR HEMOGLOBIN 29.6 pg (27.0-31.0); MEAN CORPUSCULAR HGB CONC 33.1 g/dL (33.0-37.0); MEAN PLATELET VOLUME 8.6 fL (7.2-11.7); MONO # 0.5 K/uL (0.0-0.8); MONO % 7.4 % (0.0-10.0); NEUT # 4.2 K/uL (1.8-7.0); NEUT % 64.8 % (50.0-75.0); NRBC % 0.1 % (0.0-2.0); RBC 4.61 Mil/uL (4.40-5.90); RED CELL DISTRIBUTION WIDTH 13.2 % (11.5-14.5); WHITE BLOOD COUNT 6.5 K/uL (4.8-10.8)
[2018-10-20 08:50] LABS: ALB/GLOB RATIO 1.7 (1.0-2.1); ALBUMIN 4.8 g/dL (3.5-5.0); ALT/SGPT 48 U/L (21-72); AST/SGOT 36 U/L (17-59); BLOOD UREA NITROGEN 15 mg/dL (9-20); CALCIUM 10.2 mg/dl (8.6-10.4); GFR NON-AFRICAN AMERICAN > 60
[2018-10-20] MEDS ORDERED: APTIOM 800 MG PO SCH (10:00)
--- NOTE | 2018-10-20 12:02 | PCM.VEEG ---
Video EEG - Procedure Start Date: 10/19/18 Start Time: 12:25 End Date: 10/20/18 End Time: 08:00 Technical Summary: DATA ACQUISITION: This was a multichannel inpatient video-EEG, a minimum of 22 channels were uti lized, performed in accordance with recommendations specified by the [place] [employer] (Yuliana Kaufman et al. ACNS Guideline 1: Minimum Technical Requirements for Performing Clinical Electroencephalography. Journal of Clinical Neurophysiology 2016;33:303-7). The 10-20 electrode placement system was utilized in accordance with guidelines detailed by the International Federation of Clinical Neurophysiology (Ivan Torres et al. The Ten-Twenty Electrode System of the International Federation. Recommendations for the Practice of Clinical Neurophysiology: Guidelines of the International Federation of Clinical Physiology 1999; EEG Suppl. 52.). DATA REVIEW / SPIKE DETECTION / DIGITAL ANALYSIS: The entire EEG was scanned and reviewed. Synchronized audio and video recording were reviewed at the time of each alarm and whenever an abnormality or suspicious activity was noted. The entire recording was analyzed utilizing an automated digital spike and seizure analysis program and all automatic spike and seizure detections were manually reviewed. A compressed spectral array was displayed and reviewed alongside the raw EEG tracings. In addition, further analysis of the EEG was performed when abnormalities were identified, including montage changes, dipole source localization, and frequency band identification. Video portion of the study is necessary to correlate abnormal EEG activity with clinical behavior. This study was attended 24 hours per day. - Interpretation Description of the study: Indication epilepsy EEG Finding during wakefulness: During active states, the EEG was characterized by 10-20 Hz, 15-30 uV activity bilaterally in fronto-central regions, with slightly slower frequencies and higher amplitudes emerging on the right. Resting wakefulness was characterized by a symmetric posterior dominant rhythm of 8-9 Hz, 30-50 uV, which was reactive to eye opening and closing, with greater amplitudes on the right. Drowsiness was associated with slow roving eye movements, slowing and fragmentation of the posterior dominant rhythm, and bilateral 4-7 Hz, 40-70 uV theta activity, sometimes with a shifting predominance. Hyperventilation and photic stimulation were not performed EEG Finding during sleep: Light sleep was recorded and was characterized by fronto-central slowing at 5-7 H, 50-125 uV, sharp central vertex waves, bilateral sleep spindles, and K- complexes; shifting asymmetries were evident. Deeper stages of sleep were recorded and were characterized an increasing frequency of 1-4 Hz, 50-100 uV delta activity. REM sleep was also recorded and was characterized by mixed frequency (3-15 Hz) low voltage (< 20 uV) activity with clusters of rapid horizontal and vertical eye movements. Interictal non-epileptiform abnormalities: tNone Interictal epileptiform abnormalities: there were occasional sharp waves and spikes seen in isolation in the right temporal region max at F8. Ictal epileptiform abnormalities: Multiple PB activations by the pte, not clear if they were accidental, no ictal abnormalities seen during the PB activations - Impression Impression: This is an abnormal video-EEG monitoring study due to the presence of 1. Right temporal interictal epileptiform discharges. 2. Multiple PB activations that were not seizures. No seizures were recorded. 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 PB activations are not seizures.
--- NOTE | 2018-10-20 13:17 | CP.PCM.DIS ---
Provider - Provider Date of Admission: 10/17/18 12:57 Attending physician: Matthew Castellanos MD Consults: 10/17/18 12:05 Neurology Consult Stat Comment: Consulting Provider: Josue Case Consulting Physician: Jouse Case Reason for Consult: seizures 10/17/18 15:36 Cardiology Consult Routine Comment: Consulting Provider: Arvind Mora Consulting Physician: Arvind Mora Reason for Consult: Witnessed seizure, hx ASD s/p repair 2007 Time Spent in preparation of Discharge (in minutes): 35 Diagnosis - Discharge Diagnosis (1) Epilepsy Status: Chronic (2) Septal defect, ventricular Status: Chronic Hospital Course - Lab Results Lab Results: Most Recent Lab Values WBC 6.5 K/uL (4.8-10.8) 10/20/18 08:26 RBC 4.61 Mil/uL (4.40-5.90) 10/20/18 08:26 Hgb 13.6 g/dL (12.0-18.0) 10/20/18 08:26 Hct 41.3 % (35.0-51.0) 10/20/18 08:26 MCV 89.4 fL (80.0-94.0) 10/20/18 08:26 MCH 29.6 pg (27.0-31.0) 10/20/18 08:26 MCHC 33.1 g/dL (33.0-37.0) 10/20/18 08:26 RDW 13.2 % (11.5-14.5) 10/20/18 08:26 Plt Count 187 K/uL (130-400) 10/20/18 08:26 MPV 8.6 fL (7.2-11.7) 10/20/18 08:26 Neut % (Auto) 64.8 % (50.0-75.0) 10/20/18 08:26 Lymph % (Auto) 24.7 % (20.0-40.0) 10/20/18 08:26 Lamb % (Auto) 7.4 % (0.0-10.0) 10/20/18 08:26 Eos % (Auto) 2.4 % (0.0-4.0) 10/20/18 08:26 Baso % (Auto) 0.7 % (0.0-2.0) 10/20/18 08:26 Neut # (Auto) 4.2 K/uL (1.8-7.0) 10/20/18 08:26 Lymph # (Auto) 1.6 K/uL (1.0-4.3) 10/20/18 08:26 Lamb # (Auto) 0.5 K/uL (0.0-0.8) 10/20/18 08:26 Eos # (Auto) 0.2 K/uL (0.0-0.7) 10/20/18 08:26 Baso # (Auto) 0.0 K/uL (0.0-0.2) 10/20/18 08:26 Sodium 140 mmol/L (132-148) 10/20/18 08:26 Potassium 4.3 mmol/L (3.6-5.2) 10/20/18 08:26 Chloride 97 mmol/L (98-107) L 10/20/18 08:26 Carbon Dioxide 32 mmol/L (22-30) H 10/20/18 08:26 Anion Gap 17 (10-20) 10/20/18 08:26 BUN 15 mg/dL (9-20) 10/20/18 08:26 Creatinine 1.0 mg/dL (0.8-1.5) 10/20/18 08:26 Est GFR ( Amer) > 60 10/20/18 08:26 Est GFR (Non-Af Amer) > 60 10/20/18 08:26 Random Glucose 91 mg/dL (75-110) 10/20/18 08:26 Calcium 10.2 mg/dl (8.6-10.4) 10/20/18 08:26 Phosphorus 3.6 mg/dL (2.5-4.5) 10/18/18 06:36 Magnesium 1.7 mg/dL (1.6-2.3) 10/18/18 06:36 Total Bilirubin 0.7 mg/dL (0.2-1.3) 10/20/18 08:26 AST 36 U/L (17-59) 10/20/18 08:26 ALT 48 U/L (21-72) 10/20/18 08:26 Alkaline Phosphatase 77 U/L (38-126) 10/20/18 08:26 Total Protein 7.8 g/dL (6.3-8.3) 10/20/18 08:26 Albumin 4.8 g/dL (3.5-5.0) 10/20/18 08:26 Globulin 2.9 gm/dL (2.2-3.9) 10/20/18 08:26 Albumin/Globulin Ratio 1.7 (1.0-2.1) 10/20/18 08:26 Lipase 57 U/L (23-300) 10/17/18 11:13 Urine Color Yellow (YELLOW) 10/17/18 11:38 Urine Clarity Clear (Clear) 10/17/18 11:38 Urine pH 6.0 (5.0-8.0) 10/17/18 11:38 Ur Specific Purcell 1.020 (1.003-1.030) 10/17/18 11:38 Urine Protein Negative mg/dL (NEGATIVE) 10/17/18 11:38 Urine Glucose (UA) Normal mg/dL (Normal) 10/17/18 11:38 Urine Ketones Negative mg/dL (NEGATIVE) 10/17/18 11:38 Urine Blood Negative (NEGATIVE) 10/17/18 11:38 Urine Nitrate Negative (NEGATIVE) 10/17/18 11:38 Urine Bilirubin Negative (NEGATIVE) 10/17/18 11:38 Urine Urobilinogen Normal mg/dL (0.2-1.0) 10/17/18 11:38 Ur Leukocyte Esterase Neg Dany/uL (Negative) 10/17/18 11:38 Urine WBC (Auto) 1 /hpf (0-5) 10/17/18 11:38 Urine RBC (Auto) < 1 /hpf (0-3) 10/17/18 11:38 Urine Opiates Screen Negative (NEGATIVE) 10/17/18 11:38 Urine Methadone Screen Negative (NEGATIVE) 10/17/18 11:38 Ur Barbiturates Screen Negative (NEGATIVE) 10/17/18 11:38 Ur Phencyclidine Scrn Negative (NEGATIVE) 10/17/18 11:38 Ur Amphetamines Screen Negative (NEGATIVE) 10/17/18 11:38 U Benzodiazepines Scrn Negative (NEGATIVE) 10/17/18 11:38 U Oth Cocaine Metabols Negative (NEGATIVE) 10/17/18 11:38 U Cannabinoids Screen Positive (NEGATIVE) H 10/17/18 11:38 - Hospital Course Hospital Course: On admission: Patient is a 28 year old male with history of ventricular septal defect and epilepsy presents following a witnessed seizure episode. Patient has a history of seizures in the past and sees Dr. Case outpatient. Patient presents with mother at bedside who did witness the seizure- she states patient had whole-body shaking. She states patient was sleeping prior to seizure activity. Patient remembers feeling prodrome of finger tingling/numbness and "not feeling like myself". Pt does not remember seizing, but he was seen in bed by his mother shaking- patient did not fall and hit his head. Patient denies any focal weakness or residual neuro symptoms other and whole body fatigue and weakness. Denies loss of bowel or bladder. Patient's mother states he has also been feeling increasingly anxious lately which may be correlated with medication change (Pt currently in process weaning off Keppra, previously on Carbamazepine). Patient has been in the process of weaning off of Keppra pper Dr. Case due to negative side effects, and consequently was taking a lower dose than previously prescribed (currently at 1500mg/day dose). Note patient also does have history of congenital septal defect status post open sternotomy repair in 2007. Patient denies vision loss, palpitations, focal weakness, blurred vision, facial droop. Hospital course: Patient was admitted for breakthrough seizures while being switched from Keppra to Aptiom. Neurologist Dr. Case who followed patient in office was on board. CT head did not reveal any new intracranial hemorrhage. Patient was placed on Aptiom 1600mg PO daily with Ativan 1mg as needed for any seizure activity. Patient did not have any seizure activity while he was hospitalized. He was placed on aspiration and seizure precautions. 24 hour video EEG revealed right temporal interictal epileptiform discharges, suggestive of temporal lobe epilepsy. Patient was discharged on Aptiom 2000mg PO daily. Given his history of VSD and presence of RBBB on EKG, patient was advised to follow up with his teacher adult education Dr. Mora as outpatient. Discharge: Patient should follow up with Neurologist Dr. Case in office on 11/11/18. Patient advised to take Aptiom 2000mg daily - patient states he has samples at home. He should take 2 tablets of 800mg and half tablet of 800mg for total of 2000mg daily. Patient advised against cannabinoid use, as it has multiple negative effects on your health. Please follow up with [facility] The[facility] Dr. Mora for follow up in office for history of ventricular septal defect. Patient advised to return to the emergency department if he develops recurrent seizures. Discharge Exam - Head Exam Head Exam: ATRAUMATIC, NORMOCEPHALIC - Eye Exam Eye Exam: EOMI, PERRL. absent: Nystagmus - ENT Exam ENT Exam: Mucous Membranes Moist Additional comments: Resolving bruise on left lateral tongue - Neck Exam Neck exam: Full Rom - Respiratory Exam Respiratory Exam: Clear to PA & Lateral, NORMAL BREATHING PATTERN. absent: Rales, Rhonchi, Wheezes, Respiratory Distress - Cardiovascular Exam Cardiovascular Exam: REGULAR RHYTHM, +S1, +S2 Additional comments: midsternal scar from VSD repair - GI/Abdominal Exam GI & Abdominal Exam: Normal Bowel Sounds, Soft. absent: Distended, Firm, Guarding, Rebound, Rigid, Tenderness - Extremities Exam Extremities exam: pedal pulses present Additional comments: no calf tenderness, no pedal edema - Back Exam Back exam: absent: CVA tenderness (L), CVA tenderness (R) - Neurological Exam Neurological exam: Alert, CN II-XII Intact, Oriented x3, Reflexes Normal - Psychiatric Exam Psychiatric exam: Normal Affect, Normal Mood Discharge Plan - Follow Up Plan Condition: GOOD Disposition: HOME/ ROUTINE Instructions: Epilepsy in Adults, Seizures, Adult (DC) Additional Instructions: Patient should follow up with Neurologist Dr. Case in office on 11/11/18. Patient advised to take Aptiom 2000mg daily - patient states he has samples at home. He should take 2 tablets of 800mg and half tablet of 800mg for total of 2000mg daily. Patient advised against cannabinoid use, as it has multiple negative effects on your health. Please follow up with [facility] The[facility] Dr. Mora for follow up in office for history of ventricular septal defect. Patient advised to return to the emergency department if he develops recurrent seizures. Referrals: Arvind Mora MD [Staff Provider] - Josue Case MD [Staff Provider] -
== END 2018-10-20 15:10 | disposition home or self-care (01) ==
LOC: C.ER 09:54 → MERGE 12:57 → C.9E 12:57 → C.6T 14:15 → C.5S 10-18 14:39
PROVIDERS: ADMIT Internal Medicine; ATTEND Internal Medicine
DX: G40.909 Epilepsy, unspecified, not intractable, without status epilepticus (principal); Q21.9 Congenital malformation of cardiac septum, unspecified; Z95.1 Presence of aortocoronary bypass graft
CPT/HCPCS: 36415; 70450; 71045; 80053; 80324; 80345; 80346; 80349; 80353; 80358; 80361; 81001; 83690; 83735; 83992; 84100; 85025; 93005; 96360; 96374; 99285; G0378; J2060; J3475; J7030